=== PATIENT | female | born 1960 | race Caucasian/White ===

== ENCOUNTER 2017-12-03 21:18 | Inpatient (IN) | payer MEDICAID ==
--- NOTE | 2017-12-03 21:48 | ER Document Report ---
ED Cardiac - General Chief Complaint: Chest Pain Stated Complaint: CHEST PAIN,L ARM PAIN Time Seen by Provider: 12/03/17 21:34 Mode of Arrival: Medic Information source: Patient Notes: Patient complained of chest pain radiating to her left arm this afternoon. She also complained of shortness of breath. She has COPD and is on home oxygen 3 L. Patient denies any abdominal pain, nausea, vomiting or diarrhea. Patient is anxious because she said she has run out of her medications at home. TRAVEL OUTSIDE OF THE [place] IN LAST 30 DAYS: No - HPI Patient complains to provider of: Chest pain, Chest tightness, Palpitations, Shortness of breath Was the onset of pain: Sudden Is the pain a: New problem Chest pain location: Substernal Quality of pain: Moderate, Radiating, Tightness Chest pain radiation location: Left arm Severity now: Moderate Severity at worst: Moderate Pain level currently: 3 Chest pain precipitating factors: At Rest Cardiac risk factors: None Positive cardiac history: Yes Associated symptoms: Shortness of breath. denies: Abdominal pain Exacerbated by: Denies Relieved by: Nothing Similar symptoms previously: No Recently seen / treated by doctor: No - Related Data Allergies/Adverse Reactions: nitroglycerin [Nitroglycerin] Allergy (Verified 11/07/11 19:36) paroxetine HCl [From Paxil] Allergy (Verified 11/07/11 19:36) Past Medical History - Social History Smoking Status: Unknown if Ever Smoked Family History: Reviewed & Not Pertinent - Past Medical History Cardiac Medical History: Reports: Hx Atrial Fibrillation, Hx Congestive Heart Failure, Hx Heart Attack, Hx Hypertension, Hx Peripheral Vascular Disease Pulmonary Medical History: Reports: Hx Pneumonia Denies: Hx Tuberculosis Musculoskeletal Medical History: Reports Hx Arthritis Psychiatric Medical History: Reports: Hx Depression Past Surgical History: Reports: Hx Abdominal Surgery, Hx Section - x 2 , Hx Cholecystectomy. Denies: Hx Pacemaker - Immunizations Hx Pneumococcal Vaccination: 03/25/10 Review of Systems - Review of Systems Constitutional: denies: Chills, Fever EENT: denies: Eye pain, Eye discharge Cardiovascular: Chest pain, Palpitations Respiratory: Short of breath Gastrointestinal: No symptoms reported Genitourinary: No symptoms reported Female Genitourinary: No symptoms reported Musculoskeletal: No symptoms reported Skin: No symptoms reported Hematologic/Lymphatic: No symptoms reported Neurological/Psychological: No symptoms reported -: Yes All other systems reviewed and negative Physical Exam - Vital signs Vitals: Temp Pulse Resp BP Pulse Ox 97.5 F 101 H 22 H 115/78 100 12/03/17 21:34 12/03/17 21:34 12/03/17 21:34 12/03/17 21:34 12/03/17 21:34 - General General appearance: Appears well, Alert, Other - Obese In distress: Mild - HEENT Head: Normocephalic, Atraumatic Eyes: Normal Pupils: PERRL - Respiratory Respiratory status: No respiratory distress Chest status: Nontender Breath sounds: Normal Chest palpation: Normal - Cardiovascular Rhythm: Regular Heart sounds: Normal auscultation Murmur: No - Abdominal Inspection: Normal Distension: No distension Bowel sounds: Normal Tenderness: Nontender Organomegaly: No organomegaly - Back Back: Normal, Nontender - Extremities General upper extremity: Normal inspection, Nontender, Normal color, Normal ROM , Normal temperature General lower extremity: Normal inspection, Nontender, Normal color, Normal ROM , Normal temperature, Normal weight bearing. No: Lisandra's sign - Neurological Neuro grossly intact: Yes Cognition: Normal Orientation: AAOx4 Mary Coma Scale Eye Opening: Spontaneous [place] Coma Scale Verbal: Oriented [place] Coma Scale Motor: Obeys Commands [place] Coma Scale Total: 15 Speech: Normal Motor strength normal: LUE, RUE, LLE, RLE Sensory: Normal - Psychological Associated symptoms: Normal affect, Normal mood - Skin Skin Temperature: Warm Skin Moisture: Dry Skin Color: Normal Course - Re-evaluation Re-evalutation: 12/03/17 23:45 I discussed patient care with the hospitalist on-call Dr. Ashwin Lassiter. He will admit the patient to the hospital for observation and further management. - Vital Signs Vital signs: Temp Pulse Resp BP Pulse Ox 97.5 F 101 H 14 148/85 H 98 12/03/17 21:34 12/03/17 21:34 12/04/17 00:00 12/03/17 23:02 12/04/17 00:00 - Laboratory Result Diagrams: 12/03/17 22:22 12/03/17 22:22 Laboratory results interpreted by me: 12/03/17 12/03/17 22:22 22:22 RDW 15.6 H Chloride 110 H Direct Bilirubin 0.6 H - Diagnostic Test Radiology reviewed: Image reviewed, Reports reviewed - EKG Interpretation by Me EKG shows normal: Sinus rhythm Rate: Tachycardia - 103 Rhythm: NSR, A.Fib When compared to previous EKG there are: Previous EKG unavailable Additional EKG results interpreted by me: 12/03/17 21:50 PVC, Nonspecific ST and T wave changes. No STEMI. - Transfer of Care Notes: 12/03/17 21:51 Chest Pain. Shortness of Breath. Discharge - Discharge Clinical Impression: Shortness of breath, Atrial fibrillation with RVR Chest pain Qualifiers: Chest pain type: unspecified Qualified Code(s): R07.9 - Chest pain, unspecified Condition: Stable Disposition: ADMITTED OBSERVATION Admitting Provider: Hospitalist - Dr Ashwin Lassiter Unit Admitted: Telemetry
[2017-12-03 22:35] LABS: ABSOLUTE EOSINOPHILS # (AUTO) 0.1 10^3/uL (0.0-0.6); ABSOLUTE LYMPHOCYTES (AUTO) 1.5 10^3/uL (0.5-4.7); ABSOLUTE MONOCYTES (AUTO) 0.5 10^3/uL (0.1-1.4); ABSOLUTE NEUT (AUTO) 3.4 10^3/uL (1.7-8.2); BASOPHILS % (AUTO) 0.4 % (0-2); EOSINOPHILS % (AUTO) 1.2 % (0-6); HEMATOCRIT 40.7 % (36.0-47.0); HEMOGLOBIN 13.5 g/dL (12.0-15.5); LYMPHOCYTES % (AUTO) 27.8 % (13-45); MEAN CORPUSCULAR HEMOGLOBIN 28.7 pg (27.0-33.4); MEAN CORPUSCULAR HGB CONC 33.2 g/dL (32.0-36.0); MEAN CORPUSCULAR VOLUME 86 fl (80-97); MONOCYTES % (AUTO) 9.1 % (3-13); PLATELET COUNT 160 10^3/uL (150-450); RED CELL DISTRIBUTION WIDTH 15.6 % (11.5-14.0); SEGMENTED NEUTROPHILS % (AUTO) 61.5 % (42-78); TOTAL CELLS COUNTED % (AUTO) 100 %; WHITE BLOOD COUNT 5.5 10^3/uL (4.0-10.5)
[2017-12-03 22:42] LABS: INTERNATIONAL RATION (INR) 1.05; PROTHROMBIN TIME 14.2 SEC (11.4-15.4)
[2017-12-03 22:54] LABS: ALANINE AMINOTRANSFERASE 23 U/L (9-52); ALBUMIN 3.5 g/dL (3.5-5.0); ALKALINE PHOSPHATASE 56 U/L (38-126); ANION GAP 7 (5-19); ASPARTATE AMINO TRANSFERASE 20 U/L (14-36); BILIRUBIN,DIRECT 0.6 mg/dL (0.0-0.4); BILIRUBIN,TOTAL 0.8 mg/dL (0.2-1.3); BLOOD UREA NITROGEN 18 mg/dL (7-20); CALCIUM 9.1 mg/dL (8.4-10.2); CARBON DIOXIDE 25 mmol/L (22-30); CHLORIDE 110 mmol/L (98-107); CREATINE KINASE 47 U/L (30-135); GLUCOSE 83 mg/dL (75-110); POTASSIUM 3.9 mmol/L (3.6-5.0); SODIUM 141.6 mmol/L (137-145); TOTAL PROTEIN 6.5 g/dL (6.3-8.2)
[2017-12-03 23:06] LABS: CREATINE KINASE MB 0.31 ng/mL (<4.55); NT PRO BNP 857 pg/mL (5-900)
[2017-12-03 23:08] LABS: TROPONIN I < 0.012 ng/mL
--- NOTE | 2017-12-03 23:52 | EKG REPORT ---
SEVERITY:- ABNORMAL ECG - ATRIAL FIBRILLATION, V-RATE 87-127 BORDERLINE T WAVE ABNORMALITIES : Confirmed by: Bridger Dennis 03-Dec-2017 23:52:10
[2017-12-03] MEDS ORDERED: ONDANSETRON HCL INJ/PF 4 MG/2 ML SDV IV ONE (23:54)
[2017-12-03] MEDS ORDERED: MORPHINE SULFATE 10 MG/ML INJ IV ONE (23:55)
[2017-12-04] MEDS ORDERED: TRAZODONE HCL 50 MG TABLET PO ONE (00:33)
[2017-12-04] MEDS ORDERED: DILTIAZEM HCL 120 MG CAP.SR.24H PO SCH (01:52)
[2017-12-04] MEDS ORDERED: WARFARIN SODIUM 3 MG TABLET PO ONE (02:00)
[2017-12-04] MEDS ORDERED: OXYCODONE HCL IR 5 MG TABLET PO ONE (02:14)
--- NOTE | 2017-12-04 02:14 | RADIOLOGY REPORT (SQ) ---
Chest single view on 12/03/2017 at 10:16 PM CLINICAL INDICATION: Chest pain COMPARISON: 11/07/2011 FINDINGS: There is slight elevation of the left hemidiaphragm. Borderline cardiomegaly is again noted. There is minimal linear atelectasis or scarring in the left lung base. The lungs are otherwise clear. Hilar and mediastinal contours are within normal limits. Pulmonary vascularity is within normal limits. IMPRESSION: No acute disease.
[2017-12-04 02:19] LABS: CREATINE KINASE MB 0.25 ng/mL (<4.55)
[2017-12-04 02:24] LABS: TROPONIN I < 0.012 ng/mL
[2017-12-04] MEDS ORDERED: DILTIAZEM HCL INJ 25 MG/5 ML VIAL IV ONE (02:40)
[2017-12-04 03:39] LABS: APPEARANCE,URINE CLEAR; BILIRUBIN,URINE NEGATIVE (NEGATIVE); COLOR,URINE YELLOW; GLUCOSE, URINE NEGATIVE (NEGATIVE); KETONES,URINE TRACE mg/dL (NEGATIVE); LEUKOCYTE ESTERASE,URINE TRACE (NEGATIVE); NITRITE,URINE NEGATIVE (NEGATIVE); PROTEIN,URINE NEGATIVE (NEGATIVE); URINE SPECIFIC GRAVITY 1.017
[2017-12-04] MEDS ORDERED: ACETAMINOPHEN 325 MG TABLET PO PRN (04:33)
--- NOTE | 2017-12-04 05:02 | PDOC H&P ---
History of Present Illness Admission Date/PCP: 12/03/17 23:49 Patient complains of: Shortness of breath and chest pain History of Present Illness: RUDOLPH MAXWELL is a 57 year old female with past medical history of atrial relation, hypertension, morbid obesity, obstructive sleep apnea, oxygen dependent COPD, osteoarthritis and benzodiazepine dependent anxiety. Patient presents with 3 days of worsening shortness of breath that was gradual in nature then was prompted to seek evaluation after 40 hours of sharp nonradiating 5 out of 5 intensity chest pain. She admits exacerbating factors of stress alleviating factor of rest. In the emergency room she has A. fib with RVR and referred to the hospitalist for admission. She denies recent cardiac stress test, new medications or running out of medications. She admits to noncompliance with medications and BiPAP secondary to nausea and is requesting Ativan and believes she is had a panic attack. Past Medical History Cardiac Medical History: Reports: Atrial Fibrillation, Congestive Heart Failure , Myocardial Infarction, Hypertension, Peripheral Vascular Disease Pulmonary Medical History: Reports: Bronchitis, Chronic Obstructive Pulmonary Disease (COPD), Pneumonia, Sleep Apnea Denies: Tuberculosis Musculoskeltal Medical History: Reports: Arthritis Psychiatric Medical History: Reports: Depression Hematology: Reports: Anemia Past Surgical History Past Surgical History: Reports: Section - x 2, Cholecystectomy Denies: Pacemaker Social History Information Source: Patient Lives with: Alone Smoking Status: Unknown if Ever Smoked Frequency of Alcohol Use: None Hx Recreational Drug Use: No Drugs: None Hx Prescription Drug Abuse: No - Advance Directive Resuscitation Status: Full Code Family History Family History: Hypertension Parental Family History Reviewed: Yes Children Family History Reviewed: Yes Sibling(s) Family History Reviewed.: Yes Medication/Allergy Home Medications: Warfarin Sodium [Coumadin 5 Mg Tablet] 5 mg PO QHS 11/13/11 Diazepam 5 mg PO BID 12/04/17 Diltiazem HCl [Cardizem Cd 120 mg Capsule] 120 mg PO BID 12/04/17 Furosemide 20 mg PO BID 12/04/17 Oxycodone HCl 30 mg PO BID 12/04/17 Oxycodone HCl [Oxycodone HCl ER] 60 mg PO DAILY 12/04/17 Allergies/Adverse Reactions: nitroglycerin [Nitroglycerin] Allergy (Verified 11/07/11 19:36) paroxetine HCl [From Paxil] Allergy (Verified 08/18/12 19:36) Review of Systems Constitutional: ABSENT: chills, fever(s), headache(s), weight gain, weight loss Eyes: ABSENT: visual disturbances Ears: ABSENT: hearing changes Cardiovascular: ABSENT: chest pain, dyspnea on exertion, edema, orthropnea, palpitations Respiratory: ABSENT: cough, hemoptysis Gastrointestinal: ABSENT: abdominal pain, constipation, diarrhea, hematemesis, hematochezia, nausea, vomiting Genitourinary: ABSENT: dysuria, hematuria Musculoskeletal: ABSENT: joint swelling Integumentary: ABSENT: rash, wounds Neurological: ABSENT: abnormal gait, abnormal speech, confusion, dizziness, focal weakness, syncope Psychiatric: ABSENT: anxiety, depression, homidical ideation, suicidal ideation Endocrine: ABSENT: cold intolerance, heat intolerance, polydipsia, polyuria Hematologic/Lymphatic: ABSENT: easy bleeding, easy bruising Physical Exam Vital Signs: Temp Pulse Resp BP Pulse Ox 97.5 F 101 H 15 107/71 99 12/03/17 21:34 12/03/17 21:34 12/04/17 03:01 12/04/17 03:01 12/04/17 03:01 General appearance: PRESENT: cooperative, mild distress, morbidly obese, well- developed, well-nourished Head exam: PRESENT: atraumatic, normocephalic Eye exam: PRESENT: conjunctiva pink, EOMI, PERRLA. ABSENT: scleral icterus Ear exam: PRESENT: normal external ear exam Mouth exam: PRESENT: moist, tongue midline Neck exam: ABSENT: carotid bruit, JVD, lymphadenopathy, thyromegaly Respiratory exam: PRESENT: clear to auscultation tano, tachypnea. ABSENT: crackles, rales, rhonchi, wheezes Cardiovascular exam: PRESENT: RRR. ABSENT: diastolic murmur, rubs, systolic murmur Pulses: PRESENT: normal dorsalis pedis pul Vascular exam: PRESENT: normal capillary refill GI/Abdominal exam: PRESENT: normal bowel sounds, soft. ABSENT: distended, guarding, mass, organolmegaly, rebound, tenderness Rectal exam: PRESENT: deferred Extremities exam: PRESENT: full ROM. ABSENT: calf tenderness, clubbing, pedal edema Neurological exam: PRESENT: alert, awake, oriented to person, oriented to place , oriented to time, oriented to situation, CN II-XII grossly intact. ABSENT: motor sensory deficit Psychiatric exam: PRESENT: appropriate affect, normal mood. ABSENT: homicidal ideation, suicidal ideation Skin exam: PRESENT: dry, intact, warm. ABSENT: cyanosis, rash Results Laboratory Results: 12/04/17 02:50 Urine Color YELLOW Urine Appearance CLEAR Urine pH 6.0 Ur Specific [place] 1.017 Urine Protein NEGATIVE Urine Glucose (UA) NEGATIVE Urine Ketones TRACE H Urine Blood NEGATIVE Urine Nitrite NEGATIVE Ur Leukocyte Esterase TRACE H Urine WBC (Auto) 2 Urine RBC (Auto) 1 12/04/17 01:45 CK-MB (CK-2) 0.25 Troponin I < 0.012 Impressions: Chest X-Ray 12/03/17 21:39 IMPRESSION: No acute disease. Assessment & Plan - Diagnosis (1) Atypical chest pain Is this a current diagnosis for this admission?: Yes Plan: Atypical chest pain though the patient's pain is atypical there are multiple risk factors for coronary artery disease and subsequently will observe and evaluation of acute coronary syndrome versus coronary artery disease with anginal equivalents. Cardiac monitoring blood pressure Q6 hours ,TSH, lipid profile, serial cardiac enzymes and former attempts to cardiac stress test are unsuccessful given uncontrolled anxiety. (2) Panic attack Is this a current diagnosis for this admission?: Yes Plan: Trazodone, benzodiazepine sparing given respiratory depression (3) Atrial fibrillation with RVR Is this a current diagnosis for this admission?: Yes Plan: Optimize diltiazem and anxiety (4) Shortness of breath Is this a current diagnosis for this admission?: Yes Plan: Likely secondary to anxiety, monitor pulse oximetry (5) Obstructive sleep apnea Is this a current diagnosis for this admission?: Yes Plan: BiPAP initiated and education - Time Time Spent: 50 to 70 Minutes - Inpatient Certification Medical Necessity: Need Close Monitoring Due to Risk of Patient Decompensation
[2017-12-04 08:11] LABS: HEMATOCRIT 40.2 % (36.0-47.0); HEMOGLOBIN 13.2 g/dL (12.0-15.5); MEAN CORPUSCULAR HEMOGLOBIN 28.7 pg (27.0-33.4); MEAN CORPUSCULAR HGB CONC 32.8 g/dL (32.0-36.0); MEAN CORPUSCULAR VOLUME 87 fl (80-97); PLATELET COUNT 144 10^3/uL (150-450); RED CELL DISTRIBUTION WIDTH 15.5 % (11.5-14.0); WHITE BLOOD COUNT 4.8 10^3/uL (4.0-10.5)
[2017-12-04 08:46] LABS: TROPONIN I < 0.012 ng/mL
[2017-12-04] MEDS ORDERED: OXYCODONE HCL IR 5 MG TABLET PO PRN (10:00)
[2017-12-04] MEDS: DIAZEPAM 5 MG TABLET PO SCH ×2 (10:39→17:08)
[2017-12-04] MEDS: DILTIAZEM HCL 120 MG CAP.SR.24H PO SCH ×2 (10:39→17:07)
[2017-12-04] MEDS: ENOXAPARIN SODIUM INJ 120 MG/0.8 ML DISP.SYRIN SUBCUT SCH ×2 (10:40→21:16)
[2017-12-04] MEDS ORDERED: OXYCODONE HCL SR 10 MG TABLET PO SCH ×2 (11:00)
[2017-12-04] MEDS ORDERED: OXYCODONE HCL SR 40 MG TABLET PO SCH (11:00)
--- NOTE | 2017-12-04 14:08 | PDOC PROGRESS REPORT ---
Subjective Progress Note for:: 12/04/17 Subjective:: 57-year-old morbidly obese white female presents with palpitations and chest pain. Patient has an anxious affect. Has a history of atrial fibrillation only on Cardizem. Her presenting heart rate was up to the 130s. Her troponins have been negative 3 she denies any pain at this time. Her INR was normal at 1.05. Patient claims she has been consistent on her Coumadin dose but does not have the level checked recently.She states she has lost 200 pounds in the past 2 years with dieting in an effort to get her left knee replaced which tends to buckle on her and has caused her to have falls in the home. Reason For Visit: ATYPICAL CHEST PAIN, AFIB, MORBID OBESITY, COPD Physical Exam Vital Signs: Temp Pulse Resp BP Pulse Ox 98.3 F 104 H 20 94/81 L 99 12/04/17 11:59 12/04/17 11:59 12/04/17 11:59 12/04/17 11:59 12/04/17 11:59 General appearance: PRESENT: no acute distress, well-developed, well-nourished Eye exam: PRESENT: conjunctiva pink, EOMI, PERRLA. ABSENT: scleral icterus Neck exam: ABSENT: carotid bruit, JVD, lymphadenopathy, thyromegaly Respiratory exam: PRESENT: clear to auscultation tano. ABSENT: rales, rhonchi, wheezes Cardiovascular exam: PRESENT: irregular rhythm. ABSENT: diastolic murmur, rubs , systolic murmur GI/Abdominal exam: PRESENT: normal bowel sounds, soft. ABSENT: distended, guarding, mass, organolmegaly, rebound, tenderness Extremities exam: PRESENT: +1 edema Musculoskeletal exam: PRESENT: other - Abnormal gait by history Neurological exam: PRESENT: alert, awake, oriented to person, oriented to place , oriented to time, oriented to situation, CN II-XII grossly intact. ABSENT: motor sensory deficit Psychiatric exam: PRESENT: anxious Results Laboratory Results: 12/04/17 08:00 12/04/17 12/04/17 12/04/17 02:50 08:00 08:00 WBC 4.8 RBC 4.60 Hgb 13.2 Hct 40.2 MCV 87 MCH 28.7 MCHC 32.8 RDW 15.5 H Plt Count 144 L Magnesium 1.8 Urine Color YELLOW Urine Appearance CLEAR Urine pH 6.0 Ur Specific [place] 1.017 Urine Protein NEGATIVE Urine Glucose (UA) NEGATIVE Urine Ketones TRACE H Urine Blood NEGATIVE Urine Nitrite NEGATIVE Ur Leukocyte Esterase TRACE H Urine WBC (Auto) 2 Urine RBC (Auto) 1 12/04/17 12/04/17 01:45 08:00 CK-MB (CK-2) 0.25 0.30 Troponin I < 0.012 < 0.012 Impressions: Chest X-Ray 12/03/17 21:39 IMPRESSION: No acute disease. Assessment & Plan - Diagnosis (1) Atrial fibrillation with RVR Is this a current diagnosis for this admission?: Yes Plan: Rate varies between 101 30. Patient currently on Cardizem 120 twice daily we will add metoprolol 25 mg twice daily in an effort to have better rate control. (2) Atypical chest pain Is this a current diagnosis for this admission?: Yes Plan: The pain seems to be associated with her atrial fibrillation. She has been unwilling to do stress test due to anxiety about the nuclear material. I discussed with her having a nonexercise nuclear stress test which will be required should she desire to have her knee replaced which she does in addition she has not been able to have dental work because of an incomplete cardiac workup. At this time the chest pain is atypical Myles stress test can be arranged in the outpatient setting. troponins are negative (3) Chronic hypoxemic respiratory failure Is this a current diagnosis for this admission?: Yes Plan: Patient has a diagnosis of COPD has never smoked and is on chronic oxygen therapy at home at 2 L. She denies obstructive sleep apnea as a diagnosis and has never had a sleep study.Continue oxygen as ordered nebulizing treatments. There is no acute exacerbation of her underlying COPD. (4) Morbid obesity with BMI of 40.0-44.9, adult Is this a current diagnosis for this admission?: Yes Plan: Has lost 200 pounds in the past 2 years with diet in an effort to get her left knee replaced which has been causing her problems due to buckling (5) Current use of snf anticoagulation Is this a current diagnosis for this admission?: Yes Plan: Patient on Coumadin 6 mg daily INR was 1.05 she claims she takes her Coumadin regularly but has not had it checked in some time. Initiate Coumadin at 10 mg nightly for the next 2 days checking daily INRs adjust Coumadin to a goal therapy of 2-3. Lovenox has been initiated at a milligram per kilogram every 12 hours until INR therapeutic. (6) Abnormal gait Is this a current diagnosis for this admission?: Yes Plan: Reports falls in the home due to knee giving out.We will consult physical therapy for assessment as patient is on long-term anticoagulation. Continued falling would create a risk which may require termination of her stroke prophylaxis. (7) Chronic pain disorder Is this a current diagnosis for this admission?: Yes Plan: I have confirmed patient's outpatient opioid therapy will continue will not escalate therapy while in hospital. (8) Chronic anxiety Is this a current diagnosis for this admission?: Yes Plan: Continue patient's benzodiazepines for which she is dependent on. (9) COPD (chronic obstructive pulmonary disease) Qualifiers: COPD type: unspecified COPD Qualified Code(s): J44.9 - Chronic obstructive pulmonary disease, unspecified Is this a current diagnosis for this admission?: Yes Plan: Currently no acute exacerbation. Patient is oxygen dependent due to her underlying lung disease. Suspect her morbid obesity is contributing factor and would suspect she does have underlying's obstructive sleep apnea or at least hypo-apneas but she denies this diagnosis. - Time Time Spent with patient: 35 or more minutes Medications reviewed and adjusted accordingly: Yes Anticipated discharge: Home Within: within 36 hours
[2017-12-04 15:09] LABS: TROPONIN I < 0.012 ng/mL
[2017-12-04 15:28] LABS: ANION GAP 5 (5-19); BLOOD UREA NITROGEN 17 mg/dL (7-20); CARBON DIOXIDE 27 mmol/L (22-30); CHLORIDE 107 mmol/L (98-107); GLUCOSE 108 mg/dL (75-110); POTASSIUM 3.9 mmol/L (3.6-5.0); SODIUM 138.8 mmol/L (137-145)
[2017-12-04] MEDS: METOPROLOL TARTRATE 25 MG TABLET PO SCH (17:05)
[2017-12-04] MEDS: WARFARIN SODIUM 5 MG TABLET PO SCH (21:15)
[2017-12-04] MEDS: OXYCODONE HCL SR 10 MG TABLET PO SCH (21:18)
[2017-12-04] MEDS ORDERED: WARFARIN SODIUM 3 MG TABLET PO SCH ×2 (22:00)
[2017-12-04] MEDS: OXYCODONE HCL SR 40 MG TABLET PO SCH (23:56)
[2017-12-05 05:33] LABS: INTERNATIONAL RATION (INR) 0.99; PROTHROMBIN TIME 13.6 SEC (11.4-15.4)
[2017-12-05 05:43] LABS: CHOLESTEROL 125.62 mg/dL (0-200); TRIGLYCERIDES 79 mg/dL (<150)
[2017-12-05 06:41] LABS: DIRECT LDL 74 mg/dL (<100)
[2017-12-05] MEDS: METOPROLOL TARTRATE 25 MG TABLET PO SCH (07:52)
[2017-12-05] MEDS: OXYCODONE HCL IR 5 MG TABLET PO SCH ×2 (07:55→12:25)
[2017-12-05] MEDS: ENOXAPARIN SODIUM INJ 120 MG/0.8 ML DISP.SYRIN SUBCUT SCH ×2 (10:58→23:25)
[2017-12-05] MEDS: DIAZEPAM 5 MG TABLET PO SCH ×2 (10:58→18:16)
[2017-12-05] MEDS: DILTIAZEM HCL 120 MG CAP.SR.24H PO SCH ×2 (10:58→18:15)
--- NOTE | 2017-12-05 14:07 | PDOC PROGRESS REPORT ---
Subjective Progress Note for:: 12/05/17 Subjective:: 57-year-old morbidly obese white female presents with palpitations and chest pain. Patient has an anxious affect. Has a history of atrial fibrillation only on Cardizem. Her presenting heart rate was up to the 130s. Her troponins have been negative 3 she denies any pain at this time. Her INR was normal at 1.05. Patient claims she has been consistent on her Coumadin dose but does not have the level checked recently.She states she has lost 200 pounds in the past 2 years with dieting in an effort to get her left knee replaced which tends to buckle on her and has caused her to have falls in the home. Reason For Visit: ATYPICAL CHEST PAIN, AFIB, MORBID OBESITY, COPD Physical Exam Vital Signs: Temp Pulse Resp BP Pulse Ox 97.8 F 78 22 H 103/77 100 12/05/17 11:52 12/05/17 11:52 12/05/17 11:52 12/05/17 11:52 12/05/17 11:52 Intake & Output 12/04/17 12/05/17 12/06/17 06:59 06:59 06:59 Intake Total 437 500 Output Total 351 Balance 86 500 Weight 133.7 kg General appearance: PRESENT: no acute distress, well-developed, well-nourished Eye exam: PRESENT: conjunctiva pink, EOMI, PERRLA. ABSENT: scleral icterus Neck exam: ABSENT: carotid bruit, JVD, lymphadenopathy, thyromegaly Respiratory exam: PRESENT: clear to auscultation atno. ABSENT: rales, rhonchi, wheezes Cardiovascular exam: PRESENT: irregular rhythm. ABSENT: diastolic murmur, rubs , systolic murmur GI/Abdominal exam: PRESENT: normal bowel sounds, soft. ABSENT: distended, guarding, mass, organolmegaly, rebound, tenderness Extremities exam: PRESENT: +1 edema. ABSENT: tenderness Psychiatric exam: PRESENT: anxious Results Laboratory Results: 12/04/17 08:00 12/04/17 13:45 12/04/17 12/05/17 13:45 05:04 Sodium 138.8 Potassium 3.9 Chloride 107 Carbon Dioxide 27 Anion Gap 5 BUN 17 Creatinine 0.57 Est GFR ( Amer) > 60 Est GFR (Non-Af Amer) > 60 Glucose 108 Calcium 9.0 Triglycerides 79 Cholesterol 125.62 LDL Cholesterol Direct 74 VLDL Cholesterol 16.0 HDL Cholesterol 35 L 12/04/17 12/04/17 12/04/17 01:45 08:00 13:45 CK-MB (CK-2) 0.25 0.30 0.30 Troponin I < 0.012 < 0.012 < 0.012 Impressions: Chest X-Ray 12/03/17 21:39 IMPRESSION: No acute disease. Assessment & Plan - Diagnosis (1) Atrial fibrillation with RVR Is this a current diagnosis for this admission?: Yes Plan: Rate varies between 100-130. Patient currently on Cardizem 120 twice daily we will add metoprolol 12.5 mg twice daily in an effort to have better rate control.Patient hesitant to take additional medicine explained this would benefit her due to her anxiety possibly driving adrenaline stimulation of her A. fib RVR. She agrees to try it and will follow up with her primary care provider in the outpatient setting. (2) Atypical chest pain Is this a current diagnosis for this admission?: Yes Plan: The pain seems to be associated with her atrial fibrillation. She has been unwilling to do stress test due to anxiety about the nuclear material. I discussed with her having a nonexercise nuclear stress test which will be required should she desire to have her knee replaced which she does in addition she has not been able to have dental work because of an incomplete cardiac workup. At this time the chest pain is atypical Myles stress test can be arranged in the outpatient setting. troponins are negative (3) Chronic hypoxemic respiratory failure Is this a current diagnosis for this admission?: Yes Plan: Patient has a diagnosis of COPD has never smoked and is on chronic oxygen therapy at home at 2 L. She denies obstructive sleep apnea as a diagnosis and has never had a sleep study.Continue oxygen as ordered nebulizing treatments. There is no acute exacerbation of her underlying COPD. (4) Morbid obesity with BMI of 40.0-44.9, adult Is this a current diagnosis for this admission?: Yes Plan: Has lost 200 pounds in the past 2 years with diet in an effort to get her left knee replaced which has been causing her problems due to buckling (5) Current use of [facility]spring former anticoagulation Is this a current diagnosis for this admission?: Yes Plan: Patient on Coumadin 6 mg daily INR was 1.05 she claims she takes her Coumadin regularly but has not had it checked in some time. Continue Coumadin at 10 mg nightly INR this morning 0.99 checking daily INRs adjust Coumadin to a goal therapy of 2-3. Lovenox has been initiated at a milligram per kilogram every 12 hours until INR therapeutic. (6) Abnormal gait Is this a current diagnosis for this admission?: Yes Plan: Reports falls in the home due to knee giving out.We will consult physical therapy for assessment as patient is on long-term anticoagulation. Continued falling would create a risk which may require termination of her stroke prophylaxis.Physical therapy currently not available. Order has been placed (7) Chronic pain disorder Is this a current diagnosis for this admission?: Yes Plan: I have confirmed patient's outpatient opioid therapy will continue will not escalate therapy while in hospital. (8) Chronic anxiety Is this a current diagnosis for this admission?: Yes Plan: Continue patient's benzodiazepines for which she is dependent on. (9) COPD (chronic obstructive pulmonary disease) Qualifiers: COPD type: unspecified COPD Qualified Code(s): J44.9 - Chronic obstructive pulmonary disease, unspecified Is this a current diagnosis for this admission?: Yes Plan: Currently no acute exacerbation. Patient is oxygen dependent due to her underlying lung disease. Suspect her morbid obesity is contributing factor and would suspect she does have underlying's obstructive sleep apnea or at least hypo-apneas but she denies this diagnosis.
[2017-12-05] MEDS: WARFARIN SODIUM 5 MG TABLET PO SCH (23:24)
[2017-12-05] MEDS: OXYCODONE HCL SR 10 MG TABLET PO SCH (23:24)
[2017-12-05] MEDS: OXYCODONE HCL SR 40 MG TABLET PO SCH (23:24)
[2017-12-06] MEDS: OXYCODONE HCL IR 5 MG TABLET PO SCH ×2 (05:09→11:26)
[2017-12-06 05:40] LABS: HEMATOCRIT 36.5 % (36.0-47.0); MEAN CORPUSCULAR HEMOGLOBIN 28.7 pg (27.0-33.4); MEAN CORPUSCULAR HGB CONC 32.9 g/dL (32.0-36.0); MEAN CORPUSCULAR VOLUME 88 fl (80-97); PLATELET COUNT 134 10^3/uL (150-450); RED BLOOD COUNT 4.17 10^6/uL (3.72-5.28); RED CELL DISTRIBUTION WIDTH 15.2 % (11.5-14.0); WHITE BLOOD COUNT 4.2 10^3/uL (4.0-10.5)
[2017-12-06 05:43] LABS: INTERNATIONAL RATION (INR) 1.07; PROTHROMBIN TIME 14.4 SEC (11.4-15.4)
[2017-12-06] MEDS: DILTIAZEM HCL 120 MG CAP.SR.24H PO SCH ×2 (10:21→21:55)
[2017-12-06] MEDS: DIAZEPAM 5 MG TABLET PO SCH ×2 (10:22→17:42)
[2017-12-06] MEDS: ENOXAPARIN SODIUM INJ 120 MG/0.8 ML DISP.SYRIN SUBCUT SCH ×2 (10:25→21:55)
--- NOTE | 2017-12-06 13:40 | PDOC PROGRESS REPORT ---
Subjective Subjective:: 57-year-old morbidly obese white female presents with palpitations and chest pain. Patient has an anxious affect. Has a history of atrial fibrillation only on Cardizem. Her presenting heart rate was up to the 130s. Her troponins have been negative 3 she denies any pain at this time. Her INR Remains subtherapeutic. Patient complaining of foul tasting drainage. She has a history of a nasal mask as an outpatient ear nose and throat evaluation pending. She claims that drainage is increased and is causing her nausea.She remains extremely anxious Reason For Visit: ATYPICAL CHEST PAIN, AFIB, MORBID OBESITY, COPD Physical Exam Vital Signs: Temp Pulse Resp BP Pulse Ox 97.8 F 98 18 100/44 L 93 12/06/17 03:54 12/06/17 07:00 12/06/17 03:54 12/06/17 03:54 12/06/17 03:54 Intake & Output 12/05/17 12/06/17 12/07/17 06:59 06:59 06:59 Intake Total 437 820 300 Output Total 351 1550 175 Balance 86 -730 125 Weight 133.7 kg 134.6 kg General appearance: PRESENT: no acute distress Eye exam: PRESENT: conjunctival injection, EOMI, PERRLA Mouth exam: PRESENT: moist, tongue midline, other - Edentulous Teeth exam: PRESENT: edentulous Neck exam: ABSENT: carotid bruit, JVD, lymphadenopathy, thyromegaly Respiratory exam: PRESENT: clear to auscultation tano. ABSENT: rales, rhonchi, wheezes Cardiovascular exam: PRESENT: irregular rhythm. ABSENT: diastolic murmur, rubs , systolic murmur Pulses: PRESENT: normal dorsalis pedis pul GI/Abdominal exam: PRESENT: normal bowel sounds, soft. ABSENT: distended, guarding, mass, organolmegaly, rebound, tenderness Extremities exam: ABSENT: calf tenderness, pedal edema Musculoskeletal exam: PRESENT: normal inspection. ABSENT: deformity Neurological exam: PRESENT: alert, awake, CN II-XII grossly intact. ABSENT: motor sensory deficit Psychiatric exam: PRESENT: anxious Results Laboratory Results: 12/06/17 04:27 12/04/17 13:45 12/06/17 04:27 WBC 4.2 RBC 4.17 Hgb 12.0 Hct 36.5 MCV 88 MCH 28.7 MCHC 32.9 RDW 15.2 H Plt Count 134 L 12/04/17 12/04/17 12/04/17 01:45 08:00 13:45 CK-MB (CK-2) 0.25 0.30 0.30 Troponin I < 0.012 < 0.012 < 0.012 Impressions: Chest X-Ray 12/03/17 21:39 IMPRESSION: No acute disease. Assessment & Plan - Diagnosis (1) Atrial fibrillation with RVR Is this a current diagnosis for this admission?: Yes Plan: Beta-rafael discontinued due to hypotension. Patient's rate remains 9205. If increases above 110 we will add digoxin to her twice daily Cardizem dosing. (2) Atypical chest pain Is this a current diagnosis for this admission?: Yes Plan: The pain seems to be associated with her atrial fibrillation. She has been unwilling to do stress test due to anxiety about the nuclear material. I discussed with her having a nonexercise nuclear stress test which will be required should she desire to have her knee replaced which she does in addition she has not been able to have dental work because of an incomplete cardiac workup. At this time the chest pain is atypical Myles stress test can be arranged in the outpatient setting. troponins are negative (3) Chronic hypoxemic respiratory failure Is this a current diagnosis for this admission?: Yes Plan: Patient has a diagnosis of COPD has never smoked and is on chronic oxygen therapy at home at 2 L. She denies obstructive sleep apnea as a diagnosis and has never had a sleep study.Continue oxygen as ordered nebulizing treatments. There is no acute exacerbation of her underlying COPD.Unable to discharge until power is on access to oxygen is available (4) Current use of superintendent container terminal anticoagulation Is this a current diagnosis for this admission?: Yes (5) Chronic anxiety Is this a current diagnosis for this admission?: Yes Plan: Patient has chronic major anxiety.Continue her outpatient medications will not make changes. (6) COPD (chronic obstructive pulmonary disease) Qualifiers: COPD type: unspecified COPD Qualified Code(s): J44.9 - Chronic obstructive pulmonary disease, unspecified Is this a current diagnosis for this admission?: Yes (7) Morbid obesity with BMI of 40.0-44.9, adult Is this a current diagnosis for this admission?: Yes (8) Abnormal gait Is this a current diagnosis for this admission?: Yes Plan: Reports falls in the home due to knee giving out.We will consult physical therapy for assessment as patient is on long-term anticoagulation. Continued falling would create a risk which may require termination of her stroke prophylaxis.Physical therapy currently not available. Order has been placed (9) Chronic pain disorder Is this a current diagnosis for this admission?: Yes Plan: I have confirmed patient's outpatient opioid therapy will continue will not escalate therapy while in hospital. 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 Because of her complaint of increasing drainage now causing nausea will CT her sinuses has no imaging is on record in this facility.If warranted we will consult ENT
--- NOTE | 2017-12-06 21:43 | RADIOLOGY REPORT (SQ) ---
EXAM DESCRIPTION: CT MAXILLOFACIAL WITHOUT IV CONTRAST COMPLETED DATE/TME: 12/06/2017 00:00 CLINICAL HISTORY: 57 years, Female, History of nasal/sinus mass now with foul drainage COMPARISON: EXAM DESCRIPTION: CLINICAL HISTORY: 57 years Female History of nasal/sinus mass now with foul drainage COMPARISON: None. TECHNIQUE: Contiguous axial images obtained through the maxillofacial region without IV contrast. Reformatted images obtained. This exam was performed according to our department optimization program which includes automated exposure control, adjustment of the mA and/or kv according to patient size and/or use of iterative reconstruction technique. FINDINGS: There is heterogeneous decreased attenuation with apparent comminuted fractures of the anterior maxilla, with displacement of teeth. There is overlying ectopic subcutaneous gas. No other acute fracture. Deviation of the nasal bones appears chronic. The post septal orbits appear unremarkable. No fluid or significant mucosal thickening in the visualized paranasal sinuses. No additional facial bone fractures are identified. IMPRESSION: Findings suggest osteomyelitis with pathologic fracture of the anterior maxilla. TECHNIQUE: Images stored on PACS. All CT scanners at this facility use dose modulation, iterative reconstruction, and/or weight based dosing when appropriate to reduce radiation dose to as low as reasonably achievable (ALARA). [facility]: Dose Right [facility]: CareDose [facility]: Dose Right [facility]: Teradose 4D [facility]: [employer] LIMITATIONS: None. FINDINGS: IMPRESSION: TECHNICAL DOCUMENTATION: Quality ID # 436: Final reports with documentation of one or more dose reduction techniques (e.g., Automated exposure control, adjustment of the mA and/or kV according to patient size, use of iterative reconstruction technique) 2010 [employer]- All Rights Reserved
[2017-12-06] MEDS: WARFARIN SODIUM 5 MG TABLET PO SCH (21:54)
[2017-12-06] MEDS: OXYCODONE HCL SR 10 MG TABLET PO SCH (21:55)
[2017-12-06] MEDS: OXYCODONE HCL SR 40 MG TABLET PO SCH (21:56)
[2017-12-07] MEDS: OXYCODONE HCL IR 5 MG TABLET PO SCH ×2 (05:35→12:00)
[2017-12-07 06:23] LABS: INTERNATIONAL RATION (INR) 1.04; PROTHROMBIN TIME 14.1 SEC (11.4-15.4)
[2017-12-07] MEDS: DILTIAZEM HCL 120 MG CAP.SR.24H PO SCH ×2 (10:45→21:18)
[2017-12-07] MEDS: DIAZEPAM 5 MG TABLET PO SCH ×2 (10:46→18:11)
[2017-12-07] MEDS: ENOXAPARIN SODIUM INJ 120 MG/0.8 ML DISP.SYRIN SUBCUT SCH ×2 (10:46→21:19)
--- NOTE | 2017-12-07 14:41 | PDOC PROGRESS REPORT ---
Subjective Progress Note for:: 12/07/17 Subjective:: 57-year-old morbidly obese white female presents with palpitations and chest pain. Patient has an anxious affect. Has a history of atrial fibrillation only on Cardizem. Her presenting heart rate was up to the 130s. Her troponins have been negative 3 she denies any pain at this time. Her INR Remains subtherapeutic. Patient complaining of foul tasting drainage. She has a history of a nasal mask as an outpatient ear nose and throat evaluation pending. She claims that drainage is increased and is causing her nausea. Patient CT completed yesterday. Shows maxillary dental caries with Bony changes consistent with osteomyelitis and small amount of subcutaneous gas. She remains extremely anxious Reason For Visit: ATYPICAL CHEST PAIN, AFIB, MORBID OBESITY, COPD Physical Exam Vital Signs: Temp Pulse Resp BP Pulse Ox 97.5 F 75 16 98/63 L 99 12/07/17 04:24 12/07/17 07:00 12/07/17 04:24 12/07/17 04:24 12/07/17 04:24 Intake & Output 12/06/17 12/07/17 12/08/17 06:59 06:59 06:59 Intake Total 820 1208 Output Total 1550 675 Balance -730 533 Weight 134.6 kg 134.8 kg General appearance: PRESENT: no acute distress, well-developed, well-nourished Mouth exam: PRESENT: moist, tongue midline Teeth exam: PRESENT: dental caries, edentulous, poor dentation Neck exam: ABSENT: carotid bruit, JVD, lymphadenopathy, thyromegaly Cardiovascular exam: PRESENT: irregular rhythm. ABSENT: systolic murmur Pulses: PRESENT: +1 pedal pulses bilateral, +2 pedal pulses bilateral, other GI/Abdominal exam: PRESENT: normal bowel sounds, soft. ABSENT: distended, guarding, mass, organolmegaly, rebound, tenderness Results Laboratory Results: 12/06/17 04:27 12/04/17 13:45 12/04/17 12/04/17 12/04/17 01:45 08:00 13:45 CK-MB (CK-2) 0.25 0.30 0.30 Troponin I < 0.012 < 0.012 < 0.012 Impressions: Chest X-Ray 12/03/17 21:39 IMPRESSION: No acute disease. Facial Bones CT 12/06/17 00:00 IMPRESSION: Findings suggest osteomyelitis with pathologic fracture of the anterior maxilla. TECHNIQUE: Images stored on PACS. All CT scanners at this facility use dose modulation, iterative reconstruction, and/or weight based dosing when appropriate to reduce radiation dose to as low as reasonably achievable (ALARA). [facility]: Dose Right [facility]: CareDose [facility]: Dose Right [facility]: Teradose 4D [facility]: [employer] LIMITATIONS: None. FINDINGS: IMPRESSION: TECHNICAL DOCUMENTATION: Quality ID # 436: Final reports with documentation of one or more dose reduction techniques (e.g., Automated exposure control, adjustment of the mA and/or kV according to patient size, use of iterative reconstruction technique) 2010 [employer]- All Rights Reserved Assessment & Plan - Diagnosis (1) Osteomyelitis of maxilla Is this a current diagnosis for this admission?: Yes Plan: Patient has been complaining of foul taste in her mouth CT confirmed numerous dental caries with displacement of the teeth comminuted fracture of the anterior axilla and changes consistent with osteomyelitis. Discussed with patient possible transfer which she is reluctant to do. Have placed a call to [facility] to discuss the case with oral surgeon or ENT to decide if p.o. antibiotics and outpatient follow-up would be appropriate or patient should be transferred for surgical debridement at this time.Awaiting callback (2) Atrial fibrillation with RVR Is this a current diagnosis for this admission?: Yes Plan: Beta-rafael discontinued due to hypotension. Patient's rate remains 90-100. If increases above 110 we will add digoxin to her twice daily Cardizem dosing. (3) Chronic hypoxemic respiratory failure Is this a current diagnosis for this admission?: Yes Plan: Patient has a diagnosis of COPD has never smoked and is on chronic oxygen therapy at home at 2 L. She denies obstructive sleep apnea as a diagnosis and has never had a sleep study.Continue oxygen as ordered nebulizing treatments. There is no acute exacerbation of her underlying COPD.Unable to discharge until power is on access to oxygen is available (4) Current use of medical terminologist anticoagulation Is this a current diagnosis for this admission?: Yes Plan: Patient on Coumadin 6 mg daily INR was 1.05 she claims she takes her Coumadin regularly but has not had it checked in some time. Continue Coumadin at 10 mg nightly INR this morning 1.05 checking daily INRs adjust Coumadin to a goal therapy of 2-3. Lovenox has been initiated at a milligram per kilogram every 12 hours until INR therapeutic. (5) Chronic anxiety Is this a current diagnosis for this admission?: Yes Plan: Patient has chronic major anxiety.Continue her outpatient medications will not make changes. (6) COPD (chronic obstructive pulmonary disease) Qualifiers: COPD type: unspecified COPD Qualified Code(s): J44.9 - Chronic obstructive pulmonary disease, unspecified Is this a current diagnosis for this admission?: Yes (7) Nasal cavity mass Is this a current diagnosis for this admission?: Yes Plan: No mass was found on CT. 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 (8) Chronic pain disorder Is this a current diagnosis for this admission?: Yes Plan: I have confirmed patient's outpatient opioid therapy will continue will not escalate therapy while in hospital. (9) Atypical chest pain Is this a current diagnosis for this admission?: Yes Plan: The pain seems to be associated with her atrial fibrillation. No chest pain complaints since A. fib controlled. (10) Morbid obesity with BMI of 40.0-44.9, adult Is this a current diagnosis for this admission?: Yes (11) Abnormal gait Is this a current diagnosis for this admission?: Yes - Time Time Spent with patient: 35 or more minutes
[2017-12-07] MEDS: CLINDAMYCIN 600 MG/D5W RTU 600 MG/50 ML RTUPB IV SCH (18:08)
[2017-12-07] MEDS: WARFARIN SODIUM 5 MG TABLET PO SCH (21:18)
[2017-12-07] MEDS: OXYCODONE HCL SR 40 MG TABLET PO SCH (21:18)
[2017-12-07] MEDS: OXYCODONE HCL SR 10 MG TABLET PO SCH (21:19)
[2017-12-07 23:39] LABS: APPEARANCE,URINE CLEAR; BILIRUBIN,URINE NEGATIVE (NEGATIVE); COLOR,URINE STRAW; GLUCOSE, URINE NEGATIVE (NEGATIVE); KETONES,URINE NEGATIVE (NEGATIVE); LEUKOCYTE ESTERASE,URINE NEGATIVE (NEGATIVE); NITRITE,URINE NEGATIVE (NEGATIVE); PROTEIN,URINE NEGATIVE (NEGATIVE); URINE SPECIFIC GRAVITY 1.006; UROBILINOGEN,URINE NEGATIVE mg/dL (<2.0)
[2017-12-08] MEDS: CLINDAMYCIN 600 MG/D5W RTU 600 MG/50 ML RTUPB IV SCH ×3 (03:43→17:13)
[2017-12-08 03:49] LABS: HEMATOCRIT 36.7 % (36.0-47.0); HEMOGLOBIN 12.2 g/dL (12.0-15.5); MEAN CORPUSCULAR HEMOGLOBIN 28.8 pg (27.0-33.4); MEAN CORPUSCULAR HGB CONC 33.2 g/dL (32.0-36.0); MEAN CORPUSCULAR VOLUME 87 fl (80-97); PLATELET COUNT 153 10^3/uL (150-450); RED BLOOD COUNT 4.23 10^6/uL (3.72-5.28); RED CELL DISTRIBUTION WIDTH 15.2 % (11.5-14.0); WHITE BLOOD COUNT 4.8 10^3/uL (4.0-10.5)
[2017-12-08 03:54] LABS: INTERNATIONAL RATION (INR) 1.07; PROTHROMBIN TIME 14.4 SEC (11.4-15.4)
[2017-12-08 04:25] LABS: BLOOD UREA NITROGEN 14 mg/dL (7-20); C-REACTIVE PROTEIN 10.2 mg/L (<10.0); CALCIUM 8.9 mg/dL (8.4-10.2); ERYTHROCYTE SEDIMENTATION RATE 16 mm/hr (0-30); GLUCOSE 89 mg/dL (75-110); POTASSIUM 4.3 mmol/L (3.6-5.0)
[2017-12-08 04:29] LABS: ANION GAP 5 (5-19); CARBON DIOXIDE 31 mmol/L (22-30); CHLORIDE 101 mmol/L (98-107); SODIUM 137.1 mmol/L (137-145)
[2017-12-08] MEDS: OXYCODONE HCL IR 5 MG TABLET PO SCH ×2 (05:05→11:48)
[2017-12-08] MEDS: ENOXAPARIN SODIUM INJ 120 MG/0.8 ML DISP.SYRIN SUBCUT SCH ×2 (10:14→21:23)
[2017-12-08] MEDS: DILTIAZEM HCL 120 MG CAP.SR.24H PO SCH ×2 (10:14→21:21)
[2017-12-08] MEDS: DIAZEPAM 5 MG TABLET PO SCH ×2 (10:21→17:13)
[2017-12-08] MEDS: WARFARIN SODIUM 5 MG TABLET PO SCH (21:21)
[2017-12-08] MEDS: OXYCODONE HCL SR 10 MG TABLET PO SCH (21:22)
[2017-12-08] MEDS: OXYCODONE HCL SR 40 MG TABLET PO SCH (21:22)
[2017-12-09] MEDS: CLINDAMYCIN 600 MG/D5W RTU 600 MG/50 ML RTUPB IV SCH ×3 (02:15→18:06)
[2017-12-09] MEDS: OXYCODONE HCL IR 5 MG TABLET PO SCH ×2 (05:07→12:06)
--- NOTE | 2017-12-09 05:10 | PDOC PROGRESS REPORT ---
Subjective Progress Note for:: 12/08/17 Subjective:: No new complaints. Reason For Visit: ATYPICAL CHEST PAIN, AFIB, MORBID OBESITY, COPD Physical Exam Vital Signs: Temp Pulse Resp BP Pulse Ox 97.3 F 80 16 107/70 100 12/09/17 03:48 12/09/17 03:48 12/09/17 03:48 12/09/17 03:48 12/09/17 03:48 Intake & Output 12/07/17 12/08/17 12/09/17 06:59 06:59 06:59 Intake Total 1208 1862 1486 Output Total 675 1900 2100 Balance 263 -60 -718 Weight 134.8 kg 135.8 kg 135.8 kg General appearance: PRESENT: cooperative, morbidly obese Respiratory exam: PRESENT: other - No increased work of breathing.. ABSENT: rales, rhonchi, wheezes Cardiovascular exam: PRESENT: RRR, other - No lateral PMI. No thrills.. ABSENT : gallop, rubs, systolic murmur Pulses: PRESENT: other - Diminished distal pulses. GI/Abdominal exam: PRESENT: distended - The abdomen is morbidly obese. Bowel sounds are distant. I am unable to evaluate the abdomen for organomegaly, masses , or hernias., soft. ABSENT: tenderness Extremities exam: PRESENT: tenderness. ABSENT: clubbing, joint swelling, pedal edema Musculoskeletal exam: PRESENT: tenderness. ABSENT: deformity, dislocation, normal inspection Neurological exam: PRESENT: alert, awake, oriented to person, oriented to place , oriented to time, oriented to situation, CN II-XII grossly intact. ABSENT: motor sensory deficit Psychiatric exam: PRESENT: depressed, unusual affect Skin exam: PRESENT: dry, intact, warm Results Laboratory Results: 12/08/17 03:40 12/08/17 03:40 12/04/17 12/04/17 12/04/17 01:45 08:00 13:45 CK-MB (CK-2) 0.25 0.30 0.30 Troponin I < 0.012 < 0.012 < 0.012 Impressions: Chest X-Ray 12/03/17 21:39 IMPRESSION: No acute disease. Facial Bones CT 12/06/17 00:00 IMPRESSION: Findings suggest osteomyelitis with pathologic fracture of the anterior maxilla. TECHNIQUE: Images stored on PACS. All CT scanners at this facility use dose modulation, iterative reconstruction, and/or weight based dosing when appropriate to reduce radiation dose to as low as reasonably achievable (ALARA). [facility]: Dose Right [facility]: CareDose [facility]: Dose Right [facility]: Teradose 4D [facility]: [employer] LIMITATIONS: None. FINDINGS: IMPRESSION: TECHNICAL DOCUMENTATION: Quality ID # 436: Final reports with documentation of one or more dose reduction techniques (e.g., Automated exposure control, adjustment of the mA and/or kV according to patient size, use of iterative reconstruction technique) 2010 [employer]- All Rights Reserved Assessment & Plan - Diagnosis (1) Atrial fibrillation with RVR Is this a current diagnosis for this admission?: Yes Plan: Rate is controlled, and the patient has been continued on anticoagulation. (2) COPD (chronic obstructive pulmonary disease) Qualifiers: COPD type: unspecified COPD Qualified Code(s): J44.9 - Chronic obstructive pulmonary disease, unspecified Is this a current diagnosis for this admission?: Yes Plan: Stable. continue nebs as needed. (3) Chronic anxiety Is this a current diagnosis for this admission?: Yes Plan: Pt remains anxious and tearful. (4) Current use of emt intermediate anticoagulation Is this a current diagnosis for this admission?: Yes Plan: Continue. (5) Osteomyelitis of maxilla Is this a current diagnosis for this admission?: Yes Plan: The patient has been discussed with an [place] [facility] [place] stated that the patient could be managed on oral antibiotics and follow up with ENT locally. No need to transfer. - Time Time Spent with patient: 25-34 minutes
[2017-12-09] MEDS: DILTIAZEM HCL 120 MG CAP.SR.24H PO SCH ×2 (09:29→21:25)
[2017-12-09] MEDS: DIAZEPAM 5 MG TABLET PO SCH ×2 (09:34→18:18)
[2017-12-09] MEDS: ENOXAPARIN SODIUM INJ 120 MG/0.8 ML DISP.SYRIN SUBCUT SCH ×2 (09:39→21:23)
--- NOTE | 2017-12-09 15:03 | PDOC PROGRESS REPORT ---
Subjective Progress Note for:: 12/09/17 Subjective:: The patient is again very tearful. She is concerned that her daughter wants to declare her incompetent and get control of her finances. Reason For Visit: ATYPICAL CHEST PAIN, AFIB, MORBID OBESITY, COPD Physical Exam Vital Signs: Temp Pulse Resp BP Pulse Ox 97.6 F 80 16 109/56 L 100 12/09/17 12:17 12/09/17 12:17 12/09/17 12:17 12/09/17 12:17 12/09/17 12:17 Intake & Output 12/08/17 12/09/17 12/10/17 06:59 06:59 06:59 Intake Total 1862 1536 50 Output Total 1900 2600 Balance -38 -1064 50 Weight 135.8 kg 134.5 kg General appearance: PRESENT: no acute distress, cooperative, morbidly obese Respiratory exam: PRESENT: other - No increased work of breathing.. ABSENT: rales, rhonchi, wheezes Cardiovascular exam: PRESENT: RRR. ABSENT: gallop, systolic murmur Pulses: PRESENT: other - Diminished distal pulses. GI/Abdominal exam: PRESENT: soft, other - Abdomen is morbidly obese. Bowel sounds are distant. I am unable to evaluate the abdomen for organomegaly, masses , or hernias due to the patient's body habitus.. ABSENT: tenderness Neurological exam: PRESENT: alert, awake, oriented to person, oriented to place , oriented to time, oriented to situation Psychiatric exam: PRESENT: anxious, depressed, unusual affect, other - tearful Skin exam: PRESENT: dry, intact, warm Results Laboratory Results: 12/08/17 03:40 12/08/17 03:40 12/04/17 12/04/17 12/04/17 01:45 08:00 13:45 CK-MB (CK-2) 0.25 0.30 0.30 Troponin I < 0.012 < 0.012 < 0.012 Impressions: Chest X-Ray 12/03/17 21:39 IMPRESSION: No acute disease. Facial Bones CT 12/06/17 00:00 IMPRESSION: Findings suggest osteomyelitis with pathologic fracture of the anterior maxilla. TECHNIQUE: Images stored on PACS. All CT scanners at this facility use dose modulation, iterative reconstruction, and/or weight based dosing when appropriate to reduce radiation dose to as low as reasonably achievable (ALARA). [facility]: Dose Right [facility]: CareDose [facility]: Dose Right [facility]: Teradose 4D [facility]: [employer] LIMITATIONS: None. FINDINGS: IMPRESSION: TECHNICAL DOCUMENTATION: Quality ID # [id number]: Final reports with documentation of one or more dose reduction techniques (e.g., Automated exposure control, adjustment of the mA and/or kV according to patient size, use of iterative reconstruction technique) 2010 [employer]- All Rights Reserved Assessment & Plan - Diagnosis (1) Atrial fibrillation with RVR Is this a current diagnosis for this admission?: Yes (2) COPD (chronic obstructive pulmonary disease) Qualifiers: COPD type: unspecified COPD Qualified Code(s): J44.9 - Chronic obstructive pulmonary disease, unspecified Is this a current diagnosis for this admission?: Yes (3) Chronic anxiety Is this a current diagnosis for this admission?: Yes (4) Current use of intermediate school teacher anticoagulation Is this a current diagnosis for this admission?: Yes (5) Osteomyelitis of maxilla Is this a current diagnosis for this admission?: Yes - Time Time Spent with patient: 25-34 minutes Medications reviewed and adjusted accordingly: Yes
[2017-12-09] MEDS: OXYCODONE HCL SR 10 MG TABLET PO SCH (21:24)
[2017-12-09] MEDS: WARFARIN SODIUM 5 MG TABLET PO SCH (21:25)
[2017-12-09] MEDS: OXYCODONE HCL SR 40 MG TABLET PO SCH (21:25)
[2017-12-10] MEDS: CLINDAMYCIN 600 MG/D5W RTU 600 MG/50 ML RTUPB IV SCH ×3 (05:41→18:15)
[2017-12-10] MEDS: OXYCODONE HCL IR 5 MG TABLET PO SCH ×2 (05:42→11:50)
[2017-12-10 06:44] LABS: HEMATOCRIT 37.5 % (36.0-47.0); HEMOGLOBIN 12.4 g/dL (12.0-15.5); MEAN CORPUSCULAR HEMOGLOBIN 28.6 pg (27.0-33.4); MEAN CORPUSCULAR VOLUME 87 fl (80-97); PLATELET COUNT 146 10^3/uL (150-450); RED BLOOD COUNT 4.33 10^6/uL (3.72-5.28); RED CELL DISTRIBUTION WIDTH 14.8 % (11.5-14.0); WHITE BLOOD COUNT 4.2 10^3/uL (4.0-10.5)
[2017-12-10] MEDS: ENOXAPARIN SODIUM INJ 120 MG/0.8 ML DISP.SYRIN SUBCUT SCH (09:41)
[2017-12-10] MEDS: DILTIAZEM HCL 120 MG CAP.SR.24H PO SCH ×2 (09:42→21:41)
[2017-12-10] MEDS: DIAZEPAM 5 MG TABLET PO SCH ×2 (09:48→18:16)
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
[2017-12-10] MEDS: APIXABAN 5 MG TABLET PO SCH (18:15)
--- NOTE | 2017-12-10 19:39 | Progress Note ---
Provider Note Provider Note: ID Consult Note Asked to review patient's chart. Pt not seen or examined. Reviewed imaging reports, provider reports, VS, labs. Ms. Wei is a 57 yo morbidly obese woman with PMH including recurrent major depressive disorder, CHRISTOPHE noncompliant with CPAP, oxygen dependent COPD, and atrial fibrillation. Per ED provider note and admitting H&P, pt presented to [facility] between 12/03-12/04/17 with c/o gradually worsening SOB, sharp chest pain and anxiety, feeling like a panic attack, after running out of medications at home. AF with RVR was diagnosed in the ED. Pt was evaluated for etiology of chest pain during her admission. Pt complained of increase in foul tasting drainage that was making her nauseous and history of a nasal cavity mass with an outpatient ENT evaluation pending. She reported that it had been biopsied in the past but is to have a re-evaluation. CT scan without contrast of the sinuses was performed (no imaging for comparison) for the patient's complaint of increased drainage causing nausea. CT scan was read as showing "heterogenous decreased attenuation with apparent commuted fractures of the anterior maxilla, with displacement of teeth" and "overlying ectopic subcutaneous gas" that was interpreted as suggestive of osteomyelitis with pathologic fracture of the anterior maxilla. IV clindamycin 600 mg q8h was started on 12/07. BCx were sent, which are negative x 48h. WBC count has remained normal. ESR was found to be 16 and CRP marginally above the lab's upper limit at 10.2. Pt remains afebrile, without leukocytosis. No cervical LAD noted, No additional complaints or physical exam abnormalities noted besides a depressed, unusual affect on exam and obese abdomen. On 12/07/17, Dr Almanza at [place] sought ENT telephone consultation, and the impression was that the patient likely has chronic osteomyelitis and that PO antibiotics would be adequate to treat her until she can get her teeth removed and the area debrided. Follow up with a local oral surgeon as an outpatient was recommended. ID input was requested for the same. Impression/Recommendations With acute osteomyelitis of the jaw, antibiotic treatment is often started empirically to avoid vascular compromise related to progressive infection. However, empiric antibiotic therapy is not usually recommended for chronic osteomyelitis of the jaw. Ideally, antibiotic therapy should be withheld prior to tissue being sent for histopathology and culture in chronic osteomyelitis, to avoid compromising the sensitivity of cultures. To address chronic osteomyelitis of the jaw, pt needs surgical debridement. Antibiotic therapy is an adjunct that can be started empirically following the procedure and then be targeted based on culture results but that, alone without surgery, will not accomplish much. Will Nicole MD [facility] Infectious Diseases pager [phone]
[2017-12-10] MEDS: OXYCODONE HCL SR 40 MG TABLET PO SCH (21:41)
[2017-12-10] MEDS: OXYCODONE HCL SR 10 MG TABLET PO SCH (21:42)
[2017-12-11] MEDS: CLINDAMYCIN 600 MG/D5W RTU 600 MG/50 ML RTUPB IV SCH ×3 (03:20→18:02)
[2017-12-11] MEDS: OXYCODONE HCL IR 5 MG TABLET PO SCH ×2 (05:13→12:13)
[2017-12-11 05:44] LABS: HEMATOCRIT 35.9 % (36.0-47.0); MEAN CORPUSCULAR HEMOGLOBIN 28.6 pg (27.0-33.4); MEAN CORPUSCULAR HGB CONC 33.3 g/dL (32.0-36.0); MEAN CORPUSCULAR VOLUME 86 fl (80-97); PLATELET COUNT 163 10^3/uL (150-450); RED BLOOD COUNT 4.18 10^6/uL (3.72-5.28); RED CELL DISTRIBUTION WIDTH 14.9 % (11.5-14.0)
[2017-12-11] MEDS: DILTIAZEM HCL 120 MG CAP.SR.24H PO SCH ×2 (10:02→21:58)
[2017-12-11] MEDS: APIXABAN 5 MG TABLET PO SCH ×2 (10:03→18:02)
[2017-12-11] MEDS: DIAZEPAM 5 MG TABLET PO SCH ×2 (10:03→18:04)
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
[2017-12-11] MEDS: OXYCODONE HCL SR 10 MG TABLET PO SCH (21:58)
[2017-12-11] MEDS: OXYCODONE HCL SR 40 MG TABLET PO SCH (22:01)
[2017-12-12] MEDS: CLINDAMYCIN 600 MG/D5W RTU 600 MG/50 ML RTUPB IV SCH ×3 (02:04→17:08)
[2017-12-12] MEDS: OXYCODONE HCL IR 5 MG TABLET PO SCH ×2 (06:02→12:28)
[2017-12-12] MEDS: DILTIAZEM HCL 120 MG CAP.SR.24H PO SCH ×2 (10:18→21:20)
[2017-12-12] MEDS: APIXABAN 5 MG TABLET PO SCH ×2 (10:18→17:08)
[2017-12-12] MEDS: DIAZEPAM 5 MG TABLET PO SCH ×2 (10:29→17:09)
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
[2017-12-12] MEDS: OXYCODONE HCL SR 40 MG TABLET PO SCH (21:20)
[2017-12-12] MEDS: OXYCODONE HCL SR 10 MG TABLET PO SCH (21:21)
[2017-12-13] MEDS: CLINDAMYCIN 600 MG/D5W RTU 600 MG/50 ML RTUPB IV SCH ×2 (02:03→09:35)
[2017-12-13] MEDS: OXYCODONE HCL IR 5 MG TABLET PO SCH (05:10)
[2017-12-13 06:34] LABS: HEMATOCRIT 39.8 % (36.0-47.0); HEMOGLOBIN 13.2 g/dL (12.0-15.5); MEAN CORPUSCULAR HEMOGLOBIN 28.7 pg (27.0-33.4); MEAN CORPUSCULAR HGB CONC 33.2 g/dL (32.0-36.0); MEAN CORPUSCULAR VOLUME 86 fl (80-97); PLATELET COUNT 171 10^3/uL (150-450); RED BLOOD COUNT 4.61 10^6/uL (3.72-5.28); RED CELL DISTRIBUTION WIDTH 15.4 % (11.5-14.0); WHITE BLOOD COUNT 4.8 10^3/uL (4.0-10.5)
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
[2017-12-13 08:41] VITALS: BP 128/63
[2017-12-13] MEDS: APIXABAN 5 MG TABLET PO SCH (09:33)
[2017-12-13] MEDS: DILTIAZEM HCL 120 MG CAP.SR.24H PO SCH (09:33)
[2017-12-13] MEDS: DIAZEPAM 5 MG TABLET PO SCH (09:34)
== END 2017-12-13 10:10 | disposition home or self-care (01) | DRG 309 ==
LOC: ER 21:18 → INTOOBSV 23:49 → OBSVTOIN 23:49 → EH 23:49 → 3S 12-04 11:55 → OBSVTOIN 12-08 08:00
PROVIDERS: ADMIT Internal Medicine; ATTEND Internal Medicine
DX: I48.91 Unspecified atrial fibrillation (principal); S02.401A Maxillary fracture, unspecified side, initial encounter for closed fracture; J96.11 Chronic respiratory failure with hypoxia; Z68.42 Body mass index [BMI] 45.0-49.9, adult; J44.9 Chronic obstructive pulmonary disease, unspecified; I50.9 Heart failure, unspecified; I11.0 Hypertensive heart disease with heart failure; J34.89 Other specified disorders of nose and nasal sinuses; K02.9 Dental caries, unspecified; M27.2 Inflammatory conditions of jaws; F41.9 Anxiety disorder, unspecified; I73.9 Peripheral vascular disease, unspecified; M19.90 Unspecified osteoarthritis, unspecified site; R26.9 Unspecified abnormalities of gait and mobility; G47.33 Obstructive sleep apnea (adult) (pediatric); G89.29 Other chronic pain; E66.01 Morbid (severe) obesity due to excess calories; I25.2 Old myocardial infarction; X58.XXXA Exposure to other specified factors, initial encounter; Y93.89 Activity, other specified; Y92.89 Other specified places as the place of occurrence of the external cause; Z99.81 Dependence on supplemental oxygen; Z79.01 Long term (current) use of anticoagulants; Z79.899 Other long term (current) drug therapy
CPT/HCPCS: 36415; 70486; 71045; 80048; 80053; 80061; 81001; 82272; 82550; 82553; 82962; 83735; 83880; 84443; 84484; 85025; 85027; 85610; 85652; 86140; 87040; 93005; 93010; 96374; 96375; 99285; G0378; G8978-GP; G8979-GP; J1650; J2270; J2405; J3490